=== PATIENT | male | born 1995 | race Two or more races ===

== ENCOUNTER 2021-06-06 10:24 | Outpatient (CLI) | payer OTHER | END 2021-06-06 10:28 | disposition home or self-care (01) | LOC: RAD 10:24 | PROVIDERS: ATTEND Specialist | DX: M54.59 Other low back pain (principal) ==

== ENCOUNTER 2021-07-04 09:29 | Outpatient (CLI) | payer OTHER | END 2021-07-04 09:30 | disposition home or self-care (01) | LOC: LAB 09:29 | PROVIDERS: ATTEND General Practice | DX: R73.01 Impaired fasting glucose (principal) ==

== ENCOUNTER 2021-07-04 09:55 | Outpatient (CLI) | payer OTHER | END 2021-07-04 10:00 | disposition home or self-care (01) | LOC: SONOGRAMA 09:55 | PROVIDERS: ATTEND General Practice | DX: K76.0 Fatty (change of) liver, not elsewhere classified (principal) ==

== ENCOUNTER 2021-11-28 15:46 | Outpatient (CLI) | payer OTHER | END 2021-11-28 15:54 | disposition home or self-care (01) | LOC: LAB 15:46 | PROVIDERS: ATTEND General Practice | DX: B17.8 Other specified acute viral hepatitis (principal) ==

== ENCOUNTER 2024-02-12 09:31 | Outpatient (CLI) | payer OTHER ==
[2024-02-12 10:53] LABS: PH,URINE 7.5 (5.0-8.0); URINE APPEARANCE Clear; URINE BILIRRUBIN Negative (NEGATIVE); URINE BLOOD Negative; URINE COLOR Yellow; URINE GLUCOSE Negative (NEGATIVE); URINE KETONE Negative (NEGATIVE); URINE LEUKOCYTE Negative; URINE NITRATE Negative; URINE PROTEIN Negative (NEGATIVE)
[2024-02-12 10:55] LABS: URINE RBC 31.1 uL (0.0-20.8)
[2024-02-12 11:02] LABS: URINE BACTERIA 1.2 uL (0.0-1933); URINE EPITHELIAL CELLS 0.3 uL (0.0-38.8); URINE WBC 0.6 uL (0.0-23.2)
[2024-02-12 11:03] LABS: HEMATOCRIT 42.2 % (39.0-48.0); HEMOGLOBIN 14.3 g/dL (13-16.00); MEAN CELL VOLUME 85.9 fL (80.0-100.00); MEAN CORPUSCULAR HEMOGLOBIN 29.2 pg (27.00-32.0); PLATELET COUNT 178 K/uL (150-450); RED BLOOD COUNT 4.91 M/uL (4.00-6.00); RED CELL DISTRIBUTION WIDTH 13.2 % (11.5-14.5)
[2024-02-12 11:30] LABS: ob NEGATIVE (NEGATIVE)
[2024-02-12 11:46] LABS: ALBUMIN 4.2 gm/dL (3.4-5.0); BILIRUBIN TOTAL 0.42 mg/dL (0.3-1.2); CALCIUM 9.6 mg/dL (8.5-10.1); CHOL HDL RATIO 2.3 (0-5.0); CREATININE SERUM 1.08 mg/dL (0.70-1.30); GFR 80.28; GLOBULINA 3.7 G/DL (2.4-3.5); POTASSIUM 5.37 mEq/L (3.5-5.1); PROSTATIC SPECIFIC ANTIGEN 0.649 NG/ML (0.010-4.00); T4 FREE 1.01 NG/ML (0.76-1.46); TOTAL PROTEIN 7.9 gm/dL (6.4-8.2); TSH 1.88 uIU/mL (0.358-3.74)
[2024-02-12 11:57] LABS: URIC ACID 5.5 mg/dL (3.5-8.5)
== END 2024-02-12 09:39 | disposition home or self-care (01) ==
LOC: LAB 09:31
PROVIDERS: ATTEND Internal Medicine
DX: K62.5 Hemorrhage of anus and rectum (principal); Z13.0 Encounter for screening for diseases of the blood and blood-forming organs and certain disorders involving the immune mechanism; Z12.11 Encounter for screening for malignant neoplasm of colon; R79.89 Other specified abnormal findings of blood chemistry; N39.0 Urinary tract infection, site not specified; Z13.220 Encounter for screening for lipoid disorders; N18.9 Chronic kidney disease, unspecified; Z13.1 Encounter for screening for diabetes mellitus; Z13.29 Encounter for screening for other suspected endocrine disorder; N40.0 Benign prostatic hyperplasia without lower urinary tract symptoms; E55.9 Vitamin D deficiency, unspecified; R80.9 Proteinuria, unspecified; Z13.89 Encounter for screening for other disorder; Z13.9 Encounter for screening, unspecified; R82.90 Unspecified abnormal findings in urine; N41.9 Inflammatory disease of prostate, unspecified

== ENCOUNTER 2024-02-12 10:10 | Outpatient (CLI) | payer OTHER | END 2024-02-12 10:14 | disposition home or self-care (01) | LOC: RAD 10:10 | PROVIDERS: ATTEND Internal Medicine | DX: J20.9 Acute bronchitis, unspecified (principal); Z13.6 Encounter for screening for cardiovascular disorders; Z13.83 Encounter for screening for respiratory disorder NEC ==

== ENCOUNTER 2024-03-31 13:41 | Outpatient (CLI) | payer OTHER | END 2024-03-31 13:43 | disposition home or self-care (01) | LOC: SONOGRAMA 13:41 | PROVIDERS: ATTEND Internal Medicine | DX: N18.2 Chronic kidney disease, stage 2 (mild) (principal); Q61.3 Polycystic kidney, unspecified; R31.9 Hematuria, unspecified ==